=== PATIENT | male | born 1945 | race Caucasian/White ===

== ENCOUNTER → 2023-09-04 10:18 | Outpatient (REF) | payer MEDICARE, SELFPAY ==
[2023-09-04 11:17] LABS: % Basophils 0.3 % (0-2); % Immature Granulocytes 0.3 % (0-0.5); % Lymphocytes 15.1 % (20.5-51.1); % Monocytes 9.8 % (1.7-9.3); % Neutrophils 73.5 % (42.2-75.2); Absolute Eosinophils 0.1 10^3/uL (0-0.7); Absolute Monocytes 0.7 10^3/uL (0.1-0.6); Hematocrit 37.2 % (39.0-52.0); Hemoglobin 12.8 g/dL (13.0-18.0); Mean Corp Hgb Conc. 34.4 g/dL (33.0-37.0); Mean Corpuscular Hgb 37.6 pg (27.0-31.0); Mean Corpuscular Volume 109.4 fL (80.0-94.0); Mean Platelet Volume 10.9 fL (7.4-10.4); Nucleated Red Blood Cells % 0 % (-); Platelet Count 134 10^3/uL (130-400); Red Cell Dist. Width 15.7 % (11.5-14.5); White Blood Cell Count 6.8 10^3/uL (4.8-10.8)
[2023-09-04 11:39] LABS: Blood Urea Nitrogen 30 mg/dl (9-20); Calcium 8.7 mg/dl (8.4-10.2); Carbon Dioxide 24 mmol/L (22-30); Chloride 103 mmol/L (98-107); Glucose 109 mg/dl (70-99); Potassium 3.9 mmol/L (3.5-5.1); Sodium 141 mmol/L (135-145); eGFR 47.65
== END ==
LOC: RAD 10:18
PROVIDERS: ATTENDING PHYSICIAN Internal Medicine
DX: R11.2 Nausea with vomiting, unspecified (principal); Z87.19 Personal history of other diseases of the digestive system
CPT/HCPCS: 36415; 74022; 80048; 85025

== ENCOUNTER 2023-09-05 22:09 | Inpatient (IN) | payer MEDICARE, SELFPAY ==
[2023-09-05] VITALS (9 sets, daily range): BP systolic 102–144; BP diastolic 56–93; BMI 27.6; BMI 26.5
--- NOTE | 2023-09-05 19:52 | ED.GENMED ---
History of Present Illness
General
Chief Complaint: Abdominal Pain
Source: patient and spouse
Exam Limitations: none
Time Seen by Provider: 09/05/23 18:01
Nursing documentation reviewed up to this point in time: agreed with
Travel History
Have you had any contact with someone who has COVID-19?: No
Do you have any symptoms of coronavirus? Fever > 100 degrees, chills, cough, shortness of breath, sore throat, loss of taste or smell, muscle aches, or headache?: No
History of Present Illness
History of Present Illness:
78-year-old male with past medical history of A-fib, CAD, hyperlipidemia, solitary kidney after previous removal, Parkinson's presenting to the emergency department after being found to have worsening diverticulitis with outpatient CT scan. Had
outpatient labs without acute abnormalities. Primary care doctor recommended to go to the emergency department to get IV antibiotics and be admitted. He claims he had some vague abdominal pain but no focal pain. Has had some vague generalized
symptoms. Was previously on antibiotics 2 weeks ago which include ciprofloxacin and metronidazole.
Past History
Past History
ED Past Medical History: Arrthythmia, CAD, Cancer, GERD, HTN, Hypercholesterolemia, AR and Other
ED Past Surgical History: Cardiac, Urological and Other
Social History
Tobacco: Former smoker
Alcohol: Occasional
Drug: None
Personal:
Living: with family
Employment: Retired
Family History
Family History: CAD
Review of Systems
Review of Systems
Allergies reviewed?: Yes
All Other Systems: ROS reviewed and negative except as documented in HPI and ROS
Phy Exam
Physical Exam
Physical Exam:
GENERAL: Alert , in no apparent distress
EYE: pupils equal and reactive
NECK: Supple, no significant adenopathy.
ENT: o/p clr, mmm.
CARDIAC: Regular rate and rhythm .
LUNGS: Clear breath sounds bilaterally, no acute respiratory distress, no wheezes/rales/rhonchi
ABDOMEN: Soft, without focal tenderness, no r/g, no cvat
NEUROLOGICAL: Alert and oriented, no focal neuro deficits
SKIN: Warm and dry, skin intact.
MUSCULOSKELETAL: No edema, well perfused.
PSYCH: Normal and appropriate interaction.
Course
Orders/Labs/Results
Orders:
Orders
09/05/23 20:17
0.9% Sodium Chloride 1000 ml [Nss] 1,000 ml IV BOLUS
Piperacillin/Tazo 3.375 Gram [Zosyn] 3.375 gram in 50 ml IV NOW
09/05/23 21:00
Apixaban [Eliquis] 5 mg PO BID
Clopidogrel Bisulfate [Plavix] 75 mg PO QPM
09/05/23 21:07
Admit/Transfer Patient As Directed
Co-Sign Provider:
Level of Care: Inpatient admission
Assign to:: Medical/Surgical
Physician / Group: Kelley Mari
Diagnosis: recurrent acute diverticulitis
Reason for Hospitalization: recurrent diverticulitis; failure to improve outpatient abx
Expected length of stay greater than two midnights?: Yes
ELOS- Estimated Length of Stay in days: 3
I certify the patient meets the requirements for IP care: Yes
09/05/23 21:09
Code Status As Directed
Resuscitation Status: Full Code
Complete Blood Count/With Diff Urgent
Comprehensive Metabolic Panel Urgent
Lactic Acid Urgent
Urinalysis Reflex To Culture Urgent
Date Specimen was Collected: 09/05/23
Time Specimen was Collected: 20:44
09/05/23 22:00
Piperacillin/Tazo 3.375 Gram [Zosyn] 3.375 gram in 50 ml IV Q6H
Piperacillin/Tazo 4.5 Gram [Zosyn] 4.5 gram in 100 ml IV Q6H
midodrine 10 mg PO TID
Abnormal Lab Results
09/05/23
21:09
RBC 3.09 L 10^6/uL
(4.70-6.10)
Hgb 11.5 L g/dL
(13.0-18.0)
Hct 33.5 L %
(39.0-52.0)
MCV 108.4 H fL
(80.0-94.0)
MCH 37.2 H pg
(27.0-31.0)
RDW 15.3 H %
(11.5-14.5)
Plt Count 109 L 10^3/uL
(130-400)
Absolute Lymphs (auto) 0.5 L 10^3/uL
(1.2-3.4)
Immature Gran % 0.6 H %
(0-0.5)
Neutrophils % 83.6 H %
(42.2-75.2)
Lymphocytes % 10.2 L %
(20.5-51.1)
09/05/23 21:09
Vital Signs
Initial and Last Documented VS:
Initial Vital Signs
Temp Pulse Resp BP Pulse Ox
98.4 F 71 17 116/56 98
09/05/23 15:07 09/05/23 15:07 09/05/23 15:07 09/05/23 15:07 09/05/23 15:07
Last Documented Vital Signs
Temp Pulse Resp BP Pulse Ox
98.4 F 55 16 138/58 100
09/05/23 15:07 09/05/23 17:48 09/05/23 17:48 09/05/23 17:48 09/05/23 17:48
MDM/Problems Addressed
MDM/Problems Addressed:
78-year-old male generally well-appearing in no obvious distress on examination normal vital signs presented for worsening diverticulitis. Recently treated with antibiotics 2 weeks ago. Primary care doctor concerned with ongoing diverticulitis.
Recommended IV antibiotics. Case discussed with colorectal surgery the claims that he could potentially follow-up as an outpatient or come in depending on patient's comfort level and symptoms. At this point it was discussed with the patient claims
that first day was having some ongoing symptoms considering this will admit started on IV antibiotics.
*Critical Care Note
Total Time (30-74mins, 75-104mins- exclusive of procedures): Not Applicable
ED Attending Note
-
Portions of this chart may have been created with voice recognition software.� Occasional wrong word or��sound alike� substitutions may have occurred due to the inherent limitations of voice recognition software.
Discharge Plan
Departure
Patient Disposition: Admit
Date of Disposition: 09/05/23
Time of Disposition: 20:28
Admit to: Med/Surg
Admit to doctor: Trung
Presentation/result/management discussed w/ accepting MD/DO: Hospitalist
Patient with high blood pressure during this ER visit?: No
Condition: Good
Covid-19: Not Applicable
Discharge Problem:
Diverticulitis
Prescriptions:
No Action
pantoprazole 40 MG tablet,delayed release (DR/EC)
40 mg PO DAILY Qty: 30 0RF
ascorbic acid (vitamin C) [Vitamin C] 500 MG tablet
500 mg PO DAILY
polyethylene glycol 3350 [Miralax] 17 gram Powder In Packet
17 g PO DAILY PRN (Reason: constipation)
fludrocortisone 0.1 mg Tablet
0.1 mg PO DAILY
zolpidem 10 mg tablet
10 mg PO HS
Patient Comments:
09/05/2023: last filled 06/28/23, 90 tabs for 90 days from [facility]#[id number]
tamsulosin [Flomax] 0.4 mg Capsule
0.4 mg PO HS
sennosides [senna] 8.6 mg Tablet
8.6 mg PO HS PRN (Reason: constipation)
therapeutic multivitamin Tablet
1 tab PO DAILY
acetaminophen [Tylenol Extra Strength] 500 mg Tablet
1,000 mg PO Q6H PRN (Reason: mild pain)
hydrocortisone acetate 25 mg Suppository
25 mg IA DAILY PRN (Reason: rectal pain)
magnesium hydroxide [Milk of Magnesia] 400 mg/5 mL Suspension
30 ml PO HS PRN (Reason: Constipation)
Eliquis 5 mg Tablet
5 mg PO BID
baclofen 5 mg Tablet
5 mg PO HS
clopidogrel 75 MG tablet
75 mg PO QPM
midodrine 10 mg tablet
10 mg PO TID Qty: 30 0RF
acetaminophen-codeine 300-30 mg tablet
1 tab PO BID PRN (Reason: back pain)
Patient Comments:
09/05/2023: last filled 06/27/23, 46 tabs [address] [facility]#[id number]
Referrals:
Chito Sotelo MD [Family Provider] -
Interventions
Interventions:
*Risk Screen - Suicide Last Done: 09/05/23 20:42
*General Assessment Last Done: 09/05/23 15:07
*Neglect/Abuse Screening Last Done: 09/05/23 20:42
ED- Fall Risk Assessment Last Done: 09/05/23 20:42
*ED COVID-19 Vaccine History Last Done: 09/05/23 15:07
CP-Anfoiz-Ewtgoouybq Assessment Last Done: 09/05/23 19:48
--- NOTE | 2023-09-05 20:37 | HPS.HSE ---
Addendum entered and electronically signed by Kelley Mari MD 09/05/23 22:04:
labs returned WBC 5.3; Hg 11.5, PLT 109. Na 138, K+ 3.9. Cr 1.4 (was 1.5 yesterday, baseline ~ 1-1.3). T. Bili 1.7, AST 144, ALT 67, Alk Phos 141.
CT with no focal intrinsic abnormality of liver; will obtain US given GI sx and elevated liver enzymes. Patient without RUQ pain. He states he takes 2 pills tylenol/day, no more.
Original Note:
Family Physician
-
Family Physician: Clif Sotelo
Chief Complaint
-
abdominal pain
History of Present Illness
Mr. 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
Patient states that this is his fourth episode of diverticulitis since January. He was treated with Augmentin then. He then had recurrence in the fall and earlier this year. Patient's symptoms associated with these episodes is nausea and vomiting.
He denies abdominal pain. On Sunday he had multiple episodes of vomiting. Since then he has felt weak and has been eating less. His PCP told him to come to the ER today. No fevers/chills. His last colonoscopy was 7 years ago.
Patient denies chest pain. No shortness of breath. No rash. + constipation. No LE swelling.
Medical History
Past Medical History
Past Medical History: Reports Arrhythmia, CAD, Cancer, Hypercholesterolemia and Other
Additional Past Medical History:
Parkinsonism, bladder cancer
Past Surgical History: Reports Cardiac (CABG, cardiac cath)
Social History
Tobacco: Former Smoker
Alcohol: Occasional
Drug: None
Personal:
Living: With Family
Employment: Retired
Family History
Family History: CAD
Allergies / Home Medications
Allergies reflects when Allergies were last updated in [employer].
Home Medications with original date entered in [employer]
Allergy/Medication List:
Allergies
Allergy/AdvReac Type Severity Reaction Status Date / Time
atorvastatin calcium Allergy INTOLERANCE-muscle Verified 09/05/23 15:06
[From Lipitor] ache
colesevelam HCl Allergy INTOLERANCE,muscle Verified 09/05/23 15:06
[From WelChol] ache
ezetimibe [From Zetia] Allergy INTOLERANCE,muscle Verified 09/05/23 15:06
ache
fenofibrate,micronized Allergy muscle ache Verified 09/05/23 15:06
[From Tricor]
niacin Allergy muscle Verified 09/05/23 15:06
[From Niaspan
Extended-Release]
rosuvastatin calcium Allergy muscle ache Verified 09/05/23 15:06
[From Crestor]
simvastatin [Simvastatin] Allergy LEG PAIN Verified 09/05/23 15:06
Home Medications
pantoprazole 40 mg tablet,delayed release 40 mg PO DAILY #30 tabs 08/15/13
ascorbic acid (vitamin C) 500 mg tablet (Vitamin C) 500 mg PO DAILY Supplement 12/17/18
acetaminophen 500 mg tablet (Tylenol Extra Strength) 1,000 mg PO Q6H PRN mild pain 05/28/23
apixaban 5 mg tablet (Eliquis) 5 mg PO BID - CAD status post CABG/stent 05/28/23
baclofen 5 mg tablet 5 mg PO HS Pain 05/28/23
clopidogrel 75 mg tablet 75 mg PO QPM - CAD status post CABG/stent 05/28/23
hydrocortisone acetate 25 mg rectal suppository 25 mg NV DAILY PRN rectal pain 05/28/23
magnesium hydroxide 400 mg/5 mL oral suspension (Milk of Magnesia) 30 ml PO HS PRN Constipation 05/28/23
sennosides 8.6 mg tablet (senna) 8.6 mg PO HS PRN constipation 05/28/23
therapeutic multivitamin 1 tab PO DAILY Supplement 05/28/23
midodrine 10 mg tablet 10 mg PO TID #30 tabs 06/01/23
fludrocortisone 0.1 mg tablet 0.1 mg PO DAILY Adrenal insufficiency 06/15/23
polyethylene glycol 3350 17 gram oral powder packet (Miralax) 17 g PO DAILY PRN constipation 06/15/23
zolpidem 10 mg tablet 10 mg PO HS Sleep 06/15/23
tamsulosin 0.4 mg capsule (Flomax) 0.4 mg PO HS Urinary Issue 07/10/23
acetaminophen 300 mg-codeine 30 mg tablet 1 tab PO BID PRN back pain 09/05/23
Review of Systems
-
History Source: Patient
A 12 point ROS was completed and negative except as noted: Yes
Physical Exam
Vital Signs
Vital Signs
Temp Pulse Resp BP Pulse Ox
98.4 F 55 16 138/58 100
09/05/23 15:07 09/05/23 17:48 09/05/23 17:48 09/05/23 17:48 09/05/23 17:48
Physical Exam
General: No Apparent Distress
HEENT: PERRLA
Respiratory: Clear; No Wheezes
Cardiac: S1/S2 and Regular Rhythm
GI: Soft and Non Tender
Musculoskeletal: No Edema
Skin: Warm and Dry; No Rash
Neuro: AO x 3
Psych: Calm
Data Reviewed
-
Diagnostic Radiology: Report Reviewed by me
Lab Data: Labs Reviewed by me
Impression/Plan
-
Mr. 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
Triage VS: T 98.4, P 71, RR 17, BP 116/56, SpO2 98%
LABS:
CT A/P
IMPRESSION:
Although LIMITED WITHOUT ORAL CONTRAST OPACIFICATION of sigmoid colon, distal descending and sigmoid diverticulosis is noted with perhaps minimally increased stranding about the proximal sigmoid colon in comparison to recent prior CT suggesting
minimal progression of uncomplicated diverticulitis.
Prior right nephrectomy again noted.
Post endovascular repair of right common iliac artery and abdominal aortic aneurysm with patent stents again noted, likely stable, better appreciated on recent CTA study August 08, 2023.
Recurrent Acute Diverticulitis
-patient has not had a colonoscopy in 7 years
-admit to med/surg
-clear liquid diet
-CRS consult
-IV Zosyn
-IV Zofran PRN
-will likely need colonoscopy post treatment acute infection (keeping blood thinners on for now)
Orthostatic hypotension
-MANAGER CONCRETE midodrine
-MANAGER CONCRETE fludrocortisone
Parkinson's disease
-patient states no longer on Sinemet given hx orthostatic hypotesnion
Atrial fibrillation paroxysmal.� Continue Eliquis.
Hx right common iliac artery aneurysm with stent 07/21
CAD/CABG
-MANAGER CONCRETE Plavix
Hyperlipidemia
History of bladder cancer/BPH
-MANAGER CONCRETE Flomax
Full code
DVT PPx Eliquis
[2023-09-05 21:15] LABS: % Basophils 0.2 % (0-2); % Eosinophils 1.3 % (0-6); % Immature Granulocytes 0.6 % (0-0.5); % Lymphocytes 10.2 % (20.5-51.1); % Monocytes 4.1 % (1.7-9.3); % Neutrophils 83.6 % (42.2-75.2); Absolute Eosinophils 0.1 10^3/uL (0-0.7); Absolute Lymphocytes 0.5 10^3/uL (1.2-3.4); Absolute Monocytes 0.2 10^3/uL (0.1-0.6); Absolute Neutrophils 4.5 10^3/uL (1.4-6.5); Hematocrit 33.5 % (39.0-52.0); Hemoglobin 11.5 g/dL (13.0-18.0); Mean Corp Hgb Conc. 34.3 g/dL (33.0-37.0); Mean Corpuscular Hgb 37.2 pg (27.0-31.0); Mean Corpuscular Volume 108.4 fL (80.0-94.0); Mean Platelet Volume 9.9 fL (7.4-10.4); Nucleated Red Blood Cells % 0 % (-); Platelet Count 109 10^3/uL (130-400); Red Blood Cell Count 3.09 10^6/uL (4.70-6.10); Red Cell Dist. Width 15.3 % (11.5-14.5); Urine Albumin Trace (Neg - Trace); Urine Bilirubin Negative (Negative); Urine Character Clear (Clear); Urine Color Yellow; Urine Glucose Negative (Negative); Urine Ketone Negative (Negative); Urine Leukocyte Negative (Negative); Urine Nitrite Negative (Negative); Urine Occult Blood Negative (Negative); Urine Urobilinogen 1+ (Neg - 1+); White Blood Cell Count 5.3 10^3/uL (4.8-10.8)
[2023-09-05] MEDS: NSS 1000 IV ×2 (21:15→23:23)
[2023-09-05] MEDS: PLAVIX 75 MG PO (21:16)
[2023-09-05] MEDS: ELIQUIS 5 MG PO (21:16)
[2023-09-05 21:27] LABS: Lactic Acid 1.4 mmol/L (0.7-2.0)
[2023-09-05 21:44] LABS: ALT (SGPT) 67 U/L (0-50); AST (SGOT) 144 U/L (17-59); Albumin 3.7 g/dl (3.5-5.0); Alkaline Phosphatase 141 U/L (38-126); Blood Urea Nitrogen 18 mg/dl (9-20); Calcium 8.9 mg/dl (8.4-10.2); Carbon Dioxide 29 mmol/L (22-30); Chloride 100 mmol/L (98-107); Glucose 122 mg/dl (70-99); Potassium 3.9 mmol/L (3.5-5.1); Sodium 138 mmol/L (135-145); Total Bilirubin 1.7 mg/dl (0.2-1.3); Total Protein 6.4 g/dl (6.3-8.2); eGFR 51.77
--- NOTE | 2023-09-05 22:35 | PTCARENOTE ---
Patient received in bed from ED @ 2235. Patient oriented to room and call gregorio.
[2023-09-05] MEDS: FLOMAX 0.400000000000000022 MG PO (23:13)
[2023-09-05] MEDS: ZOSYN 50 IV (23:13)
[2023-09-06] MEDS: LIORESAL 5 MG PO ×2 (00:01→21:19)
[2023-09-06] MEDS: AMBIEN 5 MG PO ×2 (00:01→21:19)
[2023-09-06] MEDS: ZOSYN 50 IV ×4 (03:21→21:19)
[2023-09-06 07:15] LABS: % Basophils 0.2 % (0-2); % Eosinophils 1.9 % (0-6); % Immature Granulocytes 0.7 % (0-0.5); % Lymphocytes 17.1 % (20.5-51.1); % Monocytes 9.1 % (1.7-9.3); Absolute Eosinophils 0.1 10^3/uL (0-0.7); Absolute Lymphocytes 0.7 10^3/uL (1.2-3.4); Absolute Monocytes 0.4 10^3/uL (0.1-0.6); Hematocrit 31.2 % (39.0-52.0); Hemoglobin 10.9 g/dL (13.0-18.0); Mean Corp Hgb Conc. 34.9 g/dL (33.0-37.0); Mean Corpuscular Hgb 38.1 pg (27.0-31.0); Mean Corpuscular Volume 109.1 fL (80.0-94.0); Mean Platelet Volume 11.1 fL (7.4-10.4); Nucleated Red Blood Cells % 0 % (-); Platelet Count 108 10^3/uL (130-400); Red Blood Cell Count 2.86 10^6/uL (4.70-6.10); Red Cell Dist. Width 14.9 % (11.5-14.5); White Blood Cell Count 4.2 10^3/uL (4.8-10.8)
[2023-09-06 07:45] LABS: ALT (SGPT) 135 U/L (0-50); AST (SGOT) 157 U/L (17-59); Alkaline Phosphatase 174 U/L (38-126); Blood Urea Nitrogen 16 mg/dl (9-20); Calcium 8.4 mg/dl (8.4-10.2); Carbon Dioxide 28 mmol/L (22-30); Chloride 105 mmol/L (98-107); Estimated Creatinine Clearance 55 ml/min; Glucose 104 mg/dl (70-99); Magnesium 2.2 mg/dl (1.6-2.3); Potassium 3.7 mmol/L (3.5-5.1); Sodium 140 mmol/L (135-145); Total Bilirubin 2.1 mg/dl (0.2-1.3); Total Protein 5.5 g/dl (6.3-8.2); eGFR 56.58
[2023-09-06 08:02] VITALS: BP 141/65
[2023-09-06] MEDS: PROTONIX 40 MG PO ×2 (10:28→10:31)
[2023-09-06] MEDS: NSS 1000 IV ×2 (10:28→21:24)
[2023-09-06] MEDS: THERAGRAN 1 TABLET PO (10:29)
[2023-09-06] MEDS: FLORINEF 0.100000000000000006 MG PO (10:32)
[2023-09-06] MEDS: ELIQUIS 5 MG PO ×2 (10:32→21:19)
[2023-09-06] MEDS: ProAmatine 10 MG PO ×3 (10:44→18:05)
--- NOTE | 2023-09-06 11:05 | CON.CRS ---
Consultation
-
Date/Time Consultation Requested: 09/05/2023, 2228
Date/Time Consultation Performed: 09/05/2023, 815
Requesting Provider: Kelley Mari MD
Performing Provider: Aamir Sheffield MD
Reason for Consultation: Diverticulitis
Medical History
-
Chief Complaint: Vomiting
History of Present Illness:
78-year-old male with a past medical history of bladder cancer, right nephrectomy, iliac aneurysm status postrepair, CABG x 1, and 7 cardiac stents presents to the ER yesterday per his primary care physician. The patient has had multiple attacks of
diverticulitis since January 2023, this being his fourth attack. His main symptom of diverticulitis is vomiting, weakness, and lack of appetite. The patient states he has never had abdominal pain fevers or chills. He has had a few CAT scans which
showed diverticulitis since January and has been on antibiotics several times. He usually is on Augmentin. The patient states that 4 days ago he started vomiting again. He had no abdominal pain or diarrhea at that time. Typically he is on the
constipated side due to his Parkinson's disease and requires 2 different laxatives to have bowel movements regularly. CT of the abdomen and pelvis shows distal descending and sigmoid diverticulosis with perhaps minimally increased stranding about
the proximal sigmoid colon comparison to the most recent CT on 08/08/2023 which suggest minimal progression of uncomplicated diverticulitis. On admission the patient's white count is 5.3. His vital signs are normal. He remains afebrile. Given his
multiple attacks of diverticulitis, we have been consulted for further surgical opinion.
Past Medical History
Past Medical History: CAD, Cancer (Bladder), Hypercholesterolemia and Other (Parkinson's disease)
Past Surgical History: Cardiac (CABG x 1, 7 cardiac stents in total), Tonsilectomy and Other (Right nephrectomy in 2020, iliac aneurysm repair in July 2023)
Social History
Tobacco: Former Smoker
Alcohol: Occasional
Drug: None
Personal:
Family History
Family History: Reviewed & Not Pertinent
Allergies / Home Medications
Allergy/AdvReac Type Severity Reaction Status Date / Time
atorvastatin calcium Allergy INTOLERANCE-muscle Verified 09/05/23 15:06
[From Lipitor] ache
colesevelam HCl Allergy INTOLERANCE,muscle Verified 09/05/23 15:06
[From WelChol] ache
ezetimibe [From Zetia] Allergy INTOLERANCE,muscle Verified 09/05/23 15:06
ache
fenofibrate,micronized Allergy muscle ache Verified 09/05/23 15:06
[From Tricor]
niacin Allergy muscle Verified 09/05/23 15:06
[From Niaspan
Extended-Release]
rosuvastatin calcium Allergy muscle ache Verified 09/05/23 15:06
[From Crestor]
simvastatin [Simvastatin] Allergy LEG PAIN Verified 09/05/23 15:06
Medication Instructions Recorded Confirmed Type
pantoprazole 40 mg tablet,delayed 40 mg PO DAILY #30 tabs 08/15/13 09/05/23 Rx
release
ascorbic acid (vitamin C) 500 mg 500 mg PO DAILY Supplement 12/17/18 09/05/23 History
tablet (Vitamin C)
acetaminophen 500 mg tablet 1,000 mg PO Q6H PRN mild pain 05/28/23 09/05/23 History
(Tylenol Extra Strength)
apixaban 5 mg tablet (Eliquis) 5 mg PO BID - CAD status post 05/28/23 09/05/23 History
CABG/stent
baclofen 5 mg tablet 5 mg PO HS Pain 05/28/23 09/05/23 History
clopidogrel 75 mg tablet 75 mg PO QPM - CAD status post 05/28/23 09/05/23 History
CABG/stent
hydrocortisone acetate 25 mg 25 mg ME DAILY PRN rectal pain 05/28/23 09/05/23 History
rectal suppository
magnesium hydroxide 400 mg/5 mL 30 ml PO HS PRN Constipation 05/28/23 09/05/23 History
oral suspension (Milk of Magnesia)
sennosides 8.6 mg tablet (senna) 8.6 mg PO HS PRN constipation 05/28/23 09/05/23 History
therapeutic multivitamin 1 tab PO DAILY Supplement 05/28/23 09/05/23 History
midodrine 10 mg tablet 10 mg PO TID #30 tabs 06/01/23 09/05/23 Rx
fludrocortisone 0.1 mg tablet 0.1 mg PO DAILY Adrenal 06/15/23 09/05/23 History
insufficiency
polyethylene glycol 3350 17 gram 17 g PO DAILY PRN constipation 06/15/23 09/05/23 History
oral powder packet (Miralax)
zolpidem 10 mg tablet 10 mg PO HS Sleep 06/15/23 09/05/23 History
tamsulosin 0.4 mg capsule (Flomax) 0.4 mg PO HS Urinary Issue 07/10/23 09/05/23 History
acetaminophen 300 mg-codeine 30 mg 1 tab PO BID PRN back pain 09/05/23 09/05/23 History
tablet
Review of Systems
-
History Source: Patient
All other systems: Negative unless noted
Constitutional: Other (Weakness)
Abdomen/GI: Vomiting and Anorexia
A 10 point review of systems was completed, and was negative except as per HPI.
Physical Exam
Vital Signs
Temp 97.9 F 09/06/23 08:02
Pulse 61 09/06/23 08:02
Resp Rate 18 09/06/23 08:02
Blood pressure 141/65 09/06/23 08:02
SaO2 97 09/06/23 08:02
09/05/23 09/06/23 09/07/23
06:59 06:59 06:59
Actual Weight 93.485 kg
Body Mass Index (BMI) 26.5
Lab Results / Allergies
09/06/23 06:07
09/06/23 06:07
WBC 4.2 10^3/uL (4.8-10.8) L 09/06/23 06:07
Hgb 10.9 g/dL (13.0-18.0) L 09/06/23 06:07
Hct 31.2 % (39.0-52.0) L 09/06/23 06:07
Plt Count 108 10^3/uL (130-400) L 09/06/23 06:07
Abs Immat Gran (auto) 0.0 10^3/uL (0-0.05) 09/06/23 06:07
Neutrophils % 71.0 % (42.2-75.2) 09/06/23 06:07
Allergy/AdvReac Type Severity Reaction Status Date / Time
atorvastatin calcium Allergy INTOLERANCE-muscle Verified 09/05/23 15:06
[From Lipitor] ache
colesevelam HCl Allergy INTOLERANCE,muscle Verified 09/05/23 15:06
[From WelChol] ache
ezetimibe [From Zetia] Allergy INTOLERANCE,muscle Verified 09/05/23 15:06
ache
fenofibrate,micronized Allergy muscle ache Verified 09/05/23 15:06
[From Tricor]
niacin Allergy muscle Verified 09/05/23 15:06
[From Niaspan
Extended-Release]
rosuvastatin calcium Allergy muscle ache Verified 09/05/23 15:06
[From Crestor]
simvastatin [Simvastatin] Allergy LEG PAIN Verified 09/05/23 15:06
Physical Exam
General: Well Developed, Well Nourished and No Apparent Distress
GI: Soft and Tender (Mild left lower quadrant/suprapubic)
Skin: Warm and Dry
Neuro: AO x 3
Data Reviewed
-
CT Scan: Image Personally Visualized and interpreted, Report Reviewed by me and Discussed with Patient
Labs: Labs Reviewed by me, Discussed with Physician and Discussed with Patient
Old Records: Reviewed
Assessment / Plan
-
Assessment: 78-year-old male with a significant past medical history of CABG, right nephrectomy, and recent iliac aneurysm repair and multiple attacks of diverticulitis since January, now with sigmoid diverticulitis.
Plan:
There is no indication for urgent surgery at this time. Can advance diet to a full liquid diet. Continue IV antibiotics. Anticipate getting through his hospital stay without surgery and performing a colonoscopy in 4 to 6 weeks. Will likely need
eventual elective robotic surgery. Discussed plan with patient at bedside.
--- NOTE | 2023-09-06 14:24 | W.PN.HOSP.TC ---
Today's Communication/Plan
-
cw current diet
Consult GI
Follow LFTs
Assessment / Plan
Assessment / Plan
Mr. 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
CT A/P
IMPRESSION:
Although LIMITED WITHOUT ORAL CONTRAST OPACIFICATION of sigmoid colon, distal descending and sigmoid diverticulosis is noted with perhaps minimally increased stranding about the proximal sigmoid colon in comparison to recent prior CT suggesting
minimal progression of uncomplicated diverticulitis.
Prior right nephrectomy again noted.
Post endovascular repair of right common iliac artery and abdominal aortic aneurysm with patent stents again noted, likely stable, better appreciated on recent CTA study August 08, 2023.
Acute nausea vomiting which was episodic and subsided now. He is without any abdominal pain. CT of the abdomen but done without any oral contrast raises suspicion for uncomplicated sigmoid diverticulitis. He just finished course of antibiotics
for presumed diverticulitis as an outpatient. He is nontender in the sigmoid area to me today. He has no leukocytosis. Unclear if it is diverticulitis or bowel wall thickening without acute inflammation. Would benefit of oral contrast study to
delineate further. CRS following.
Other thing to keep in mind is his abnormal LFTs and preceeding antibiotic use.
Abnormal LFTs with abdo pain. CT with IV contrast -There is no focal intrinsic abnormality of the gallbladder, liver, spleen, pancreas, adrenal glands or left kidney except for a small simple parapelvic left renal cyst.�US shows GB sludge with
cholelithiasis but no US signs to suggest cholecystitis. No biliary ductal dilatation. No abdominal pain or tenderness currently. Unclear etiology. Patient was exposed to antibiotics preceding this. Consult GI.
Orthostatic hypotension
-NURSE OBGYN midodrine
-NURSE OBGYN fludrocortisone
Parkinson's disease
-patient states no longer on Sinemet given hx orthostatic hypotesnion
Atrial fibrillation paroxysmal.� Continue Eliquis.
Hx right common iliac artery aneurysm with stent 07/21
CAD/CABG
-NURSE OBGYN Plavix
Hyperlipidemia
History of bladder cancer/BPH
-NURSE OBGYN Flomax
Full code
DVT PPx Eliquis
Anticipated Discharge: > 48 hours
Subjective/Interval History
-
Date of Service: September 06, 2023
No abdominal pain. He never had abdominal pain with his diverticulitis in the past as well.
He had bouts of nausea and vomiting on Sunday and ever since no nausea vomiting. Depressed appetite. No nausea vomiting currently. Currently on full liquid diet which she seems to tolerate.
He was on empirical antibiotics Augmentin plus another antibiotics which he cannot recollect the name for diverticulitis and finished on Sunday last week. He started to have nausea and vomiting on Sunday. No diarrhea. Normally constipated
because of his Parkinson's disease.
No prior history of gallbladder disease.
Objective Data
-
Labs:
Laboratory Results
09/06/23
06:07
WBC 4.2 L
Hgb 10.9 L
Hct 31.2 L
Plt Count 108 L
Sodium 140
Potassium 3.7
Chloride 105
Carbon Dioxide 28
BUN 16
Creatinine 1.3
Glucose 104 H
Calcium 8.4
Total Bilirubin 2.1 H
AST 157 H
ALT 135 H
Alkaline Phosphatase 174 H
Vital Signs:
Vital Signs
Temp Pulse Resp BP Pulse Ox
97.9 F 61 18 141/65 97
09/06/23 08:02 09/06/23 08:02 09/06/23 08:02 09/06/23 08:02 09/06/23 08:02
I&O
09/05/23 09/06/23 09/07/23
06:59 06:59 06:59
Intake Total 340 / 340
Output Total 1150 / 1150
Balance -810 / -810
Review of Systems
-
Constitutional: Denies Fever or Chills
EENT: Denies Sore Throat
Respiratory: Denies Trouble Breathing
Cardiac: Denies Chest Pain
Neuro: Denies Dizzy
Physical Exam
-
General: No Apparent Distress
HEENT: Moist Mucous Membranes
Respiratory: Clear to Auscultation
Cardiac: Regular Rhythm and S1/S2
GI: Soft, Nontender, Nondistended and Normal Bowel Sounds
Neuro: AO x 3
Psych: Calm
Data Reviewed
-
Ultrasound: Report Reviewed by me (Ultrasound abdomen)
Labs: Labs Reviewed by me
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
[2023-09-06 15:21] VITALS: BP 142/64
[2023-09-06 15:48] LABS: Iron 56 ug/dl (49-181)
[2023-09-06 15:58] LABS: Percent Saturation 27 % (20-50); Total Iron Binding Capacity 206 ug/dl (261-462)
--- NOTE | 2023-09-06 16:17 | CM ---
manager agricultural reviewed patient's chart and met with patient and patient lives with her spouse in 2 story home, patient is independent with adl's and has a cane and walker for ambulation. Patient has a prescription plan and patient uses [facility] pharmacy,
PCP: Dr. Sotelo
Plan; Home when stable, no needs.
[2023-09-06 17:03] VITALS: BMI 26.5
[2023-09-06 17:06] LABS: Folate > 20.0 ng/ml (2.76-20); Vitamin B12 881 pg/ml (239-931)
[2023-09-06] MEDS: PLAVIX 75 MG PO (18:05)
[2023-09-06] MEDS: FLOMAX 0.400000000000000022 MG PO (21:19)
[2023-09-06 23:35] VITALS: BP 162/74
[2023-09-07] MEDS: ZOSYN 50 IV ×4 (04:10→21:05)
[2023-09-07] MEDS: NSS IV (08:01)
[2023-09-07 08:12] VITALS: BP 167/81
[2023-09-07 09:12] LABS: Hematocrit 33.4 % (39.0-52.0); Hemoglobin 11.6 g/dL (13.0-18.0); Mean Corp Hgb Conc. 34.7 g/dL (33.0-37.0); Mean Corpuscular Hgb 37.2 pg (27.0-31.0); Mean Corpuscular Volume 107.1 fL (80.0-94.0); Mean Platelet Volume 11.1 fL (7.4-10.4); Platelet Count 117 10^3/uL (130-400); Red Blood Cell Count 3.12 10^6/uL (4.70-6.10); Red Cell Dist. Width 14.9 % (11.5-14.5); White Blood Cell Count 5.4 10^3/uL (4.8-10.8)
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
[2023-09-07 09:34] LABS: ALT (SGPT) 147 U/L (0-50); AST (SGOT) 97 U/L (17-59); Albumin 3.2 g/dl (3.5-5.0); Alkaline Phosphatase 194 U/L (38-126); Blood Urea Nitrogen 12 mg/dl (9-20); Calcium 8.6 mg/dl (8.4-10.2); Carbon Dioxide 26 mmol/L (22-30); Chloride 106 mmol/L (98-107); Estimated Creatinine Clearance 55 ml/min; Glucose 102 mg/dl (70-99); Potassium 3.8 mmol/L (3.5-5.1); Sodium 142 mmol/L (135-145); Total Bilirubin 1.3 mg/dl (0.2-1.3); Total Protein 5.8 g/dl (6.3-8.2); eGFR 56.58
--- NOTE | 2023-09-07 10:12 | CM ---
Chart reviewed, GI consulted, home with spouse when stable.
Plan; Home when stable.
[2023-09-07] MEDS: THERAGRAN 1 TABLET PO (11:12)
[2023-09-07] MEDS: ProAmatine 10 MG PO ×2 (11:12→17:09)
[2023-09-07] MEDS: PROTONIX 40 MG PO (11:12)
[2023-09-07] MEDS: FLORINEF 0.100000000000000006 MG PO (11:12)
[2023-09-07] MEDS: ELIQUIS 5 MG PO ×2 (11:13→21:04)
[2023-09-07] MEDS: ProAmatine PO (11:30)
--- NOTE | 2023-09-07 11:32 | W.PN.HOSP.TC ---
Today's Communication/Plan
-
Follow MRI of abdomen/MRCP
Assessment / Plan
Assessment / Plan
Mr. 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
CT A/P
IMPRESSION:
Although LIMITED WITHOUT ORAL CONTRAST OPACIFICATION of sigmoid colon, distal descending and sigmoid diverticulosis is noted with perhaps minimally increased stranding about the proximal sigmoid colon in comparison to recent prior CT suggesting
minimal progression of uncomplicated diverticulitis.
Prior right nephrectomy again noted.
Post endovascular repair of right common iliac artery and abdominal aortic aneurysm with patent stents again noted, likely stable, better appreciated on recent CTA study August 08, 2023.
Acute nausea vomiting which was episodic and subsided now. He is without any abdominal pain. CT of the abdomen but done without any oral contrast raises suspicion for uncomplicated sigmoid diverticulitis. He just finished course of antibiotics
for presumed diverticulitis as an outpatient. He is nontender in the sigmoid area to me again today. He has no leukocytosis. Unclear if it is diverticulitis or bowel wall thickening without acute inflammation. Would benefit of oral contrast study
to delineate further. CRS following.
Other thing to keep in mind is his abnormal LFTs and preceeding antibiotic use.
Abnormal LFTs with abdo pain. CT with IV contrast -There is no focal intrinsic abnormality of the gallbladder, liver, spleen, pancreas, adrenal glands or left kidney except for a small simple parapelvic left renal cyst.�US shows GB sludge with
cholelithiasis but no US signs to suggest cholecystitis. No biliary ductal dilatation. No abdominal pain or tenderness currently. Unclear etiology. Patient was exposed to antibiotics preceding this. Appt GI input - await MRI/MRCP. Improving LFTs
start on LR diet
Orthostatic hypotension
-ATMOSPHERIC TECHNICIAN midodrine
-ATMOSPHERIC TECHNICIAN fludrocortisone
Parkinson's disease
-patient states no longer on Sinemet given hx orthostatic hypotesnion
Atrial fibrillation paroxysmal.� Continue Eliquis.
Hx right common iliac artery aneurysm with stent 07/21
CAD/CABG
-ATMOSPHERIC TECHNICIAN Plavix
Hyperlipidemia
History of bladder cancer/BPH
-ATMOSPHERIC TECHNICIAN Flomax
Full code
DVT PPx Eliquis
Anticipated Discharge: 24 - 48 hours
Subjective/Interval History
-
Date of Service: September 07, 2023
No further nausea vomiting. No abdominal pain.
Objective Data
-
Labs:
Laboratory Results
09/07/23
08:40
WBC 5.4
Hgb 11.6 L
Hct 33.4 L
Plt Count 117 L
Sodium 142
Potassium 3.8
Chloride 106
Carbon Dioxide 26
BUN 12
Creatinine 1.3
Glucose 102 H
Calcium 8.6
Total Bilirubin 1.3
AST 97 H
ALT 147 H
Alkaline Phosphatase 194 H
Vital Signs:
Vital Signs
Temp Pulse Resp BP Pulse Ox
98.2 F 60 18 167/81 97
09/07/23 08:12 09/07/23 08:12 09/07/23 08:12 09/07/23 08:12 09/07/23 08:12
I&O
09/06/23 09/07/23 09/08/23
06:59 06:59 06:59
Intake Total 340 / 340 4160 / 4160
Output Total 1150 / 1150 1375 / 1375
Balance -810 / -810 2785 / 2785
Review of Systems
-
Constitutional: Denies Fever or Chills
EENT: Denies Sore Throat
Respiratory: Denies Cough or Trouble Breathing
Cardiac: Denies Chest Pain or Palpitations
Neuro: Denies Dizzy
Physical Exam
-
General: No Apparent Distress
HEENT: Moist Mucous Membranes
Respiratory: Clear to Auscultation
Cardiac: Regular Rhythm and S1/S2
GI: Soft, Nontender, Nondistended and Normal Bowel Sounds
Neuro: AO x 3
Data Reviewed
-
Labs: Labs Reviewed by me
--- NOTE | 2023-09-07 12:34 | W.PN.CRS1 ---
Addendum entered and electronically signed by Bradley Keen MD 09/07/23 14:02:
I saw and examined the patient.
The PA's note was reviewed and I agree with the note.
Comment:
Seen in a.m. with PA.
Still with minimal if any pain. Tolerated fulls.
Vitals and blood work unremarkable.
Abdomen soft with minimal suprapubic tenderness to deep palpation.
Diet advanced.
Continue antibiotics. Will follow along.
Original Note:
Today's Communication / Plan
-
low residue
continue abx
no indication for surgery at this time
Assessment/Plan
-
Assessment: 78-year-old male with a significant past medical history of CABG, right nephrectomy, and recent iliac aneurysm repair and multiple attacks of diverticulitis since January, now with sigmoid diverticulitis.
Plan:
1. There is no indication for urgent surgery at this time.
2. Okay to advance to a low residue diet.
3. Continue IV antibiotics.
4. Will need a colonoscopy in 4 to 6 weeks.� Will likely need eventual elective robotic surgery.� Discussed plan with patient at bedside. Follow up with Dr. Sheffield as an outpatient.
Subjective Data
Subjective Data
Date of Service: September 07, 2023
Patient states he is still only a little tender in his LLQ. He denies nausea or vomiting. He is tolerating fulls.
Objective Data
-
Vital Signs
Temp Pulse Resp BP Pulse Ox
98.2 F 60 18 167/81 97
09/07/23 08:12 09/07/23 08:12 09/07/23 08:12 09/07/23 08:12 09/07/23 08:12
Intake & Output
09/06/23 09/07/23 09/08/23
06:59 06:59 06:59
Intake Total 340 / 340 4160 / 4160
Output Total 1150 / 1150 1375 / 1375
Balance -810 / -810 2785 / 2785
Intake:
Oral fluids 240 / 240 1560 / 1560
IV fluids (Total) 2400 / 2400
IV piggybacks 100 / 100 200 / 200
Output:
Urine, Voided 1150 / 1150 1375 / 1375
Lab Results
09/07/23 08:40
09/07/23 08:40
Physical Exam
-
General: No Acute Distress and AOx3
Abdomen: Non Distended and Tender (mild LLQ)
[2023-09-07 15:36] LABS: Hepatitis B Surface Antigen Negative (Negative)
[2023-09-07 15:53] LABS: Hepatitis B Core Ab, Total Negative (Negative); Hepatitis B Surface Antibody Negative; Hepatitis C Antibody Negative (Negative)
[2023-09-07 15:55] LABS: Hepatitis A IgM Antibody Negative (Negative)
[2023-09-07 16:40] LABS: Hepatitis B Core Ab, IgM Negative (Negative)
[2023-09-07 16:41] VITALS: BP 149/72
[2023-09-07] MEDS: PLAVIX 75 MG PO (17:09)
[2023-09-07 17:18] LABS: Hepatitis A Antibody, Total Negative (Negative)
[2023-09-07] MEDS: AMBIEN 5 MG PO (21:00)
[2023-09-07] MEDS: LIORESAL 5 MG PO (21:03)
[2023-09-07] MEDS: FLOMAX 0.400000000000000022 MG PO (21:03)
[2023-09-07] MEDS: ZOFRAN 4 MG IV (21:06)
[2023-09-07] MEDS: FLUSH (NSS) 1 FLUSH IV (21:06)
[2023-09-07 23:31] VITALS: BP 173/79
[2023-09-08] MEDS: ZOSYN 50 IV ×2 (03:42→08:44)
[2023-09-08] MEDS: FLUSH (NSS) 2 FLUSH IV (03:43)
[2023-09-08 06:51] LABS: ALT (SGPT) 110 U/L (0-50); AST (SGOT) 47 U/L (17-59); Albumin 3.3 g/dl (3.5-5.0); Alkaline Phosphatase 183 U/L (38-126); Blood Urea Nitrogen 11 mg/dl (9-20); Calcium 8.3 mg/dl (8.4-10.2); Carbon Dioxide 26 mmol/L (22-30); Chloride 108 mmol/L (98-107); Estimated Creatinine Clearance 51 ml/min; Glucose 113 mg/dl (70-99); Potassium 3.7 mmol/L (3.5-5.1); Sodium 138 mmol/L (135-145); Total Bilirubin 0.9 mg/dl (0.2-1.3); eGFR 51.77
[2023-09-08] MEDS: ProAmatine 10 MG PO ×2 (08:41→13:25)
[2023-09-08] MEDS: PROTONIX 40 MG PO (08:43)
[2023-09-08] MEDS: THERAGRAN 1 TABLET PO (08:44)
[2023-09-08] MEDS: ELIQUIS 5 MG PO (08:44)
[2023-09-08] MEDS: FLORINEF 0.100000000000000006 MG PO (08:45)
[2023-09-08 08:55] VITALS: BP 154/83
--- NOTE | 2023-09-08 11:27 | W.PN.CRS1 ---
Addendum entered and electronically signed by Larry Garcia MD 09/08/23 11:55:
I saw and examined the patient.
The [employer] Specialist's note was reviewed and I agree with the note.
Comment: Doing well with non-op mgmt. Mild ttp to LLQ, zero ttp to RUQ. Doubt any issue with gallbladder is contributing to his presentation at this time. OK for DC from surgical standpoint with PO abx.
Original Note:
Today's Communication / Plan
-
Dispo planning
Assessment/Plan
-
Assessment: 78-year-old male with a significant past medical history of CABG, right nephrectomy, and recent iliac aneurysm repair and multiple attacks of diverticulitis since January, now with sigmoid diverticulitis. Symptoms improved with mild
residual LLQ.
LFT's continue to trend down, WBC returned to normal on 09/07/23
MRCP reviewed with cholelithiasis noted without cholecystitis. No RUQ discomfort on exam.
Tolerating diet
Answered all questions and had lengthy discussion with patient and his (via telephone) regarding his diagnosis, imaging and planned follow up.
Plan:
--There is no indication for urgent surgery at this time
--Continue low residue diet upon d/c
--Continue abx with conversion to PO upon discharge
--Will need a colonoscopy in 4 to 6 weeks.� Will likely need eventual elective robotic surgery.�Revisited plan with patient at bedside. Follow up with Dr. Sheffield as an outpatient.
--Clear for discharge from surgical standpoint with oral abx and outpatient follow up
Subjective Data
Subjective Data
Date of Service: September 08, 2023
Patient seen and examined at bedside with Dr. Garcia.
Episode of nausea last night with dinner but notes he had a very large meal. No nausea with large breakfast this am. Tenderness to LLQ but no abdominal pain otherwise.
Objective Data
-
Vital Signs
Temp Pulse Resp BP Pulse Ox
97.7 F 60 18 154/83 96
09/08/23 08:55 09/08/23 08:55 09/08/23 08:55 09/08/23 08:55 09/08/23 08:55
Intake & Output
09/07/23 09/08/23 09/09/23
06:59 06:59 06:59
Intake Total 4260 / 4260 1900 / 1900
Output Total 1375 / 1375 600 / 600
Balance 2885 / 2885 1300 / 1300
Intake:
Oral fluids 1560 / 1560 1700 / 1700
IV fluids (Total) 2400 / 2400
IV piggybacks 300 / 300 200 / 200
Output:
Urine, Voided 1375 / 1375 600 / 600
Lab Results
09/07/23 08:40
09/08/23 05:39
Physical Exam
-
General: No Acute Distress and AOx3
Abdomen: Non Distended, Tender (mild LLQ) and Other (RUQ NON-tender)
Data Reviewed
-
MRI: Image Reviewed and Report Reviewed
--- NOTE | 2023-09-08 12:29 | W.PN.HOSP.TC ---
Today's Communication/Plan
-
DC
Assessment / Plan
Assessment / Plan
Mr. 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
Acute nausea vomiting which was episodic and subsided now. He is without any abdominal pain. CT of the abdomen but done without any oral contrast raises suspicion for uncomplicated sigmoid diverticulitis. He just finished course of antibiotics
for presumed diverticulitis as an outpatient. He is tender in the sigmoid area to me today. He has no leukocytosis. Unclear if it is diverticulitis or bowel wall thickening without acute inflammation. CRS input noted - recommend abx regimen and
follow up [place] in 5-6 weeks
Other thing to keep in mind is his abnormal LFTs and preceeding antibiotic use.
Abnormal LFTs with abdo pain. CT with IV contrast -There is no focal intrinsic abnormality of the gallbladder, liver, spleen, pancreas, adrenal glands or left kidney except for a small simple parapelvic left renal cyst.�US shows GB sludge with
cholelithiasis but no US signs to suggest cholecystitis. No biliary ductal dilatation. No abdominal pain or tenderness currently. Unclear etiology. Patient was exposed to antibiotics preceding this. Appt GI input - MRI/MRCP shows There is a
small amount of edema adjacent to the anterior margin of the gallbladder, although the wall itself does not appear to be significantly thickened. There is also a small amount of ascites in the left upper quadrant, mainly adjacent to the inferior and
lateral aspect of the spleen
No evidence for biliary ductal dilation. No evidence for bile duct calculus.
No RUQ tenderness -doubt cholecystitis
Improving LFTs
? LFT elevation sec to abx -follow next week
Tolerating LR diet
Orthostatic hypotension
-SUPERVISOR PREP midodrine
-SUPERVISOR PREP fludrocortisone
Parkinson's disease
-patient states no longer on Sinemet given hx orthostatic hypotesnion
Atrial fibrillation paroxysmal.� Continue Eliquis.
Hx right common iliac artery aneurysm with stent 07/21
CAD/CABG
-SUPERVISOR PREP Plavix
Hyperlipidemia
History of bladder cancer/BPH
-SUPERVISOR PREP Flomax
Full code
Medically stable for DC
Pt would like to have tx for nause meds as bridge to doctors/ER visit incase if he becomes symptomatic but he knows to come in to hospital for eval when symptoms recur.
Anticipated Discharge: Today
Subjective/Interval History
-
Date of Service: September 08, 2023
Denies any abdominal pain nausea vomiting.
Tolerating diet
Objective Data
-
Labs:
Laboratory Results
09/08/23
05:39
Sodium 138
Potassium 3.7
Chloride 108 H
Carbon Dioxide 26
BUN 11
Creatinine 1.4 H
Glucose 113 H
Calcium 8.3 L
Total Bilirubin 0.9
AST 47
ALT 110 H
Alkaline Phosphatase 183 H
Vital Signs:
Vital Signs
Temp Pulse Resp BP Pulse Ox
97.7 F 60 18 154/83 96
09/08/23 08:55 09/08/23 08:55 09/08/23 08:55 09/08/23 08:55 09/08/23 08:55
I&O
09/07/23 09/08/23 09/09/23
06:59 06:59 06:59
Intake Total 4260 / 4260 1900 / 1900
Output Total 1375 / 1375 600 / 600
Balance 2885 / 2885 1300 / 1300
Review of Systems
-
Constitutional: Denies Fever
Respiratory: Denies Trouble Breathing
Cardiac: Denies Chest Pain
Neuro: Denies Dizzy
Physical Exam
-
General: No Apparent Distress
HEENT: Moist Mucous Membranes
Respiratory: Clear to Auscultation
Cardiac: Regular Rhythm and S1/S2
GI: Soft, Nondistended, Normal Bowel Sounds and Tender (Discomfort in sigmoid area on deep palpation)
Neuro: AO x 3
Data Reviewed
-
Labs: Labs Reviewed by me
--- NOTE | 2023-09-08 12:38 | W.DS.TRANS ---
DC Summary - [employer] Supervisor
-
Discharge Instructions:
Sleep Apnea Risk Low
Discharge Diagnosis/Procedures Left sigmoid diverticulitis; abnormal LFTs ;
cholelithiasis with gallbladder sludge
Diet Low Residue
Activity As tolerated
Driving Restrictions As prior to admission
Bathing Restrictions None
Blood Work CMP blood work in a week-arrange through PCP
Instructions:
Stand-Alone Forms:
Changes to Home Medications: Yes
Discharge Medications:
DC Medications w/original date entered in [employer]
pantoprazole 40 mg tablet,delayed release 40 mg PO DAILY #30 tabs 08/15/13
ascorbic acid (vitamin C) 500 mg tablet (Vitamin C) 500 mg PO DAILY Supplement 12/17/18
acetaminophen 500 mg tablet (Tylenol Extra Strength) 1,000 mg PO Q6H PRN mild pain 05/28/23
apixaban 5 mg tablet (Eliquis) 5 mg PO BID - CAD status post CABG/stent 05/28/23
baclofen 5 mg tablet 5 mg PO HS Pain 05/28/23
clopidogrel 75 mg tablet 75 mg PO QPM - CAD status post CABG/stent 05/28/23
hydrocortisone acetate 25 mg rectal suppository 25 mg [place] DAILY PRN rectal pain 05/28/23
magnesium hydroxide 400 mg/5 mL oral suspension (Milk of Magnesia) 30 ml PO HS PRN Constipation 05/28/23
sennosides 8.6 mg tablet (senna) 8.6 mg PO HS PRN constipation 05/28/23
therapeutic multivitamin 1 tab PO DAILY Supplement 05/28/23
midodrine 10 mg tablet 10 mg PO TID #30 tabs 06/01/23
fludrocortisone 0.1 mg tablet 0.1 mg PO DAILY Adrenal insufficiency 06/15/23
polyethylene glycol 3350 17 gram oral powder packet (Miralax) 17 g PO DAILY PRN constipation 06/15/23
zolpidem 10 mg tablet 10 mg PO HS Sleep 06/15/23
tamsulosin 0.4 mg capsule (Flomax) 0.4 mg PO HS Urinary Issue 07/10/23
acetaminophen 300 mg-codeine 30 mg tablet 1 tab PO BID PRN back pain 09/05/23
amoxicillin 875 mg-potassium clavulanate 125 mg tablet 1 tab PO BID #14 tabs 09/08/23
ondansetron HCl 4 mg tablet 4 mg PO Q8H PRN nausea and vomiting 3 days #10 tabs 09/08/23
Home Medication Changes
New Medication-Augmentin, Zofran
Pending Results: No
--- NOTE | 2023-09-08 13:12 | W.PN.GI.CBS2 ---
Today's Communication / Plan
-
Recommendations:
-Elevated LFTs, transaminases and bilirubin, now trending down
Ultrasound with gallbladder sludge/stones, no right upper quadrant tenderness
No previous elevation in LFTs.
MRI/MRCP showing gallstones, seen by surgery as well, no need for lap abimael
-History of recurrent diverticulitis
Currently no abdominal pain
Follow-up colonoscopy in 5 to 6 weeks as outpatient-will arrange for follow-up in the office
Has follow-up with colorectal surgery as well
-Chronic constipation with history of Parkinson's
Takes Senokot, MiraLAX and magnesium citrate at home
Monitor bowel movements to prevent any constipation during the hospital visit
Patient reports that the regimen that he uses at home is working and will continue that
Assessment / Plan
-
The pt is 78yo presents with hx multiple medical issues including Parkinson's, bladder CA with TURPBT, nephrectomy, CAD/AR with prior cardiac stents on Plavix, PAF on Eliquis, CABG, AVR, asthma, TIA, GI bleed with hx endovascular repair of right
common iliac artery aneurysm in June. He also related multiple bouts of diverticulitis since last summer. Pt will start with abdominal fullness then nausea/vomiting and CT on admission with noted diverticulitis. He has very minimal abdominal
pain and admits to chronic constipation but some loose stool or regular stools with diverticulitis symptoms. He was last treated in July with Cipro and Flagyl with intolerance then Augmentin. He now presents again with recurrent symptoms with
vomiting. He has been seen by colorectal surgery and recommended colonoscopy then consider resection. He was placed on IV Zosyn. He is however noted with new LFT elevation of bili 2.1, AST 157, ALT 135, alk phos 174 and asked to eval. He is also
noted with pancytopenia, , with MCV up to 109. Pt also admits to chronic constipation and recent wt loss with diet change - 50 lbs. last colonoscopy 07/2013 with severe diverticulosis, transverse and ascites with impacted diverticulum and evidence
of prior bleeding from diverticular opening, and adenomatous polyps. ? EGD years ago.
09/06/23 US abdomen: IMPRESSION: 'Cholelithiasis. There is also a small to moderate amount of mobile sludge within the gallbladder lumen. No evidence for gallbladder wall thickening or pericholecystic edema. No evidence for biliary ductal dilation.
Pancreas is unable to be adequately visualized. No gross abnormality in the peripancreatic region. Aortic endovascular stent graft is present. Status post right nephrectomy.'
Problem list:
-recurrent episode of nausea/vomiting with diverticulitis noted on CT and minimal abdominal pain
-new increased LFT's, US showing gallbladder sludge/cholelithiasis with no liver etiology
-chronic thrombocytopenia, stable
-macrocytic anemia
-recent wt loss with change in diet
-ETOH use - current 2 drinks per week last year
-CAD/CABG/multiple stents on chronic Plavix
-afib on Eliquis
-chronic constipation 2/2 Parkinson's
-recent endovascular repair of right common iliac artery aneurysm
other medical problems:
-Parkinson's disease
-bladder CA with TURBT
-orthostasis on chronic Midodrine
-nephrectomy
-GERD
-AVR
-asthma
-TIA
-GI bleed distant hx unclear source
MRI/MRCP-IMPRESSION: Cholelithiasis. There is a small amount of edema adjacent to the anterior margin of the gallbladder, although the wall itself does not appear to be significantly thickened. There is also a small amount of ascites in the left
upper quadrant, mainly adjacent to the inferior and lateral aspect of the spleen.Please correlate with any clinical symptoms that would suggest acute cholecystitis.No evidence for biliary ductal dilation. No evidence for bile duct calculus.Status
post right nephrectomy. No abnormality of the left kidney.
Recommendations:
-Elevated LFTs, transaminases and bilirubin, now trending down
Ultrasound with gallbladder sludge/stones, no right upper quadrant tenderness
No previous elevation in LFTs.
MRI/MRCP showing gallstones, seen by surgery as well, no need for lap abimael
-History of recurrent diverticulitis
Currently no abdominal pain
Follow-up colonoscopy in 5 to 6 weeks as outpatient-will arrange for follow-up in the office
Has follow-up with colorectal surgery as well
-Chronic constipation with history of Parkinson's
Takes Senokot, MiraLAX and magnesium citrate at home
Monitor bowel movements to prevent any constipation during the hospital visit
Patient reports that the regimen that he uses at home is working and will continue that
Subjective
Subjective
Date of Service: September 08, 2023
No events overnight and no current symptoms
Had not had a bowel movement yet
Objective
Data Reviewed
Laboratory Data:
Laboratory Results
09/07/23 08:40
09/08/23 05:39
Laboratory Results
Magnesium 2.2 mg/dl (1.6-2.3) 09/06/23 06:07
Total Bilirubin 0.9 mg/dl (0.2-1.3) 09/08/23 05:39
AST 47 U/L (17-59) 09/08/23 05:39
ALT 110 U/L (0-50) H 09/08/23 05:39
Alkaline Phosphatase 183 U/L (38-126) H 09/08/23 05:39
Vital Signs and I&O:
Vital Signs
Temp Pulse Resp BP Pulse Ox
97.7 F 60 18 154/83 96
09/08/23 08:55 09/08/23 08:55 09/08/23 08:55 09/08/23 08:55 09/08/23 08:55
I&O
09/07/23 09/08/23 09/09/23
06:59 06:59 06:59
Intake Total 4260 / 4260 1900 / 1900
Output Total 1375 / 1375 600 / 600
Balance 2885 / 2885 1300 / 1300
Physical Exam
Physical Exam
GI: Soft, Non Distended and Normal Bowel Sounds
--- NOTE | 2023-09-08 15:01 | PTCARENOTE ---
Pt DC'd to home. Pt given DC instructions and verbalized understanding.
[2023-09-10 01:16] LABS: Endomysial IgA Antibody Titer <1:10 (<1:10)
[2023-09-10 01:44] LABS: IgA 280 mg/dl (70-400)
[2023-09-11 13:41] LABS: tTG IgA Antibody 7.5 EU/ml (0-19); tTG IgG Antibody 13.5 EU/ml (0-19)
== END 2023-09-08 19:16 | disposition home or self-care (01) | DRG 392 ==
LOC: 4 WEST ACU 22:09
PROVIDERS: Nurse Practitioner Adult Health; Physician Assistant; ADMITTING PHYSICIAN Student in an Organized Health Care Education/Training Program; ATTENDING PHYSICIAN Internal Medicine; CONSULT PHYSICIAN Internal Medicine Gastroenterology; EMERGENCY PHYSICIAN Emergency Medicine; FAMILY PHYSICIAN Internal Medicine; OTHER PHYSICIAN Surgery
DX: K57.32 Diverticulitis of large intestine without perforation or abscess without bleeding (principal); E78.00 Pure hypercholesterolemia, unspecified; I48.0 Paroxysmal atrial fibrillation; I25.10 Atherosclerotic heart disease of native coronary artery without angina pectoris; G20.A1 Parkinson's disease without dyskinesia, without mention of fluctuations; I10 Essential (primary) hypertension; K80.80 Other cholelithiasis without obstruction; J45.909 Unspecified asthma, uncomplicated; K59.09 Other constipation; I95.1 Orthostatic hypotension; D53.9 Nutritional anemia, unspecified; F10.90 Alcohol use, unspecified, uncomplicated; N40.0 Benign prostatic hyperplasia without lower urinary tract symptoms; K21.9 Gastro-esophageal reflux disease without esophagitis; I25.2 Old myocardial infarction; Z85.51 Personal history of malignant neoplasm of bladder; Z87.891 Personal history of nicotine dependence; Z79.52 Long term (current) use of systemic steroids; Z79.01 Long term (current) use of anticoagulants; Z79.02 Long term (current) use of antithrombotics/antiplatelets; Z95.1 Presence of aortocoronary bypass graft; Z88.8 Allergy status to other drugs, medicaments and biological substances; Z90.5 Acquired absence of kidney; Z90.79 Acquired absence of other genital organ(s); Z95.5 Presence of coronary angioplasty implant and graft; Z86.79 Personal history of other diseases of the circulatory system; Z86.73 Personal history of transient ischemic attack (TIA), and cerebral infarction without residual deficits
CPT/HCPCS: 36415; 74022; 74177; 74183; 76700; 80048; 80053; 81003; 82607; 82728; 82746; 82784; 83516; 83540; 83550; 83605; 83735; 85025; 85027; 86231; 86704; 86705; 86706; 86708; 86709; 86803; 87340; 96361; 96374; 99284; A9575; Q9967

== ENCOUNTER → 2023-09-25 13:14 | Outpatient (REF) | payer MEDICARE, SELFPAY | LOC: CLAB 13:14 | PROVIDERS: ATTENDING PHYSICIAN Specialist | DX: C67.9 Malignant neoplasm of bladder, unspecified (principal) | CPT/HCPCS: 88112 ==

== ENCOUNTER → 2023-10-29 06:34 | Day surgery (SDC) | payer MEDICARE, SELFPAY | LOC: GI 06:34 | PROVIDERS: ATTENDING PHYSICIAN Surgery | DX: Z12.11 Encounter for screening for malignant neoplasm of colon (principal); Z86.010 Personal history of colon polyps; K57.30 Diverticulosis of large intestine without perforation or abscess without bleeding; D12.0 Benign neoplasm of cecum | CPT/HCPCS: 45385; 45380; 88305 ==

== ENCOUNTER → 2023-12-21 09:21 | Outpatient (REF) | payer MEDICARE, SELFPAY ==
[2023-12-21 11:52] LABS: % Basophils 0.8 % (0-2); % Eosinophils 1.4 % (0-6); % Immature Granulocytes 0.4 % (0-0.5); % Monocytes 9.3 % (1.7-9.3); % Neutrophils 57.1 % (42.2-75.2); Absolute Eosinophils 0.1 10^3/uL (0-0.7); Absolute Lymphocytes 1.5 10^3/uL (1.2-3.4); Absolute Monocytes 0.5 10^3/uL (0.1-0.6); Absolute Neutrophils 2.8 10^3/uL (1.4-6.5); Hematocrit 34.2 % (39.0-52.0); Hemoglobin 12.1 g/dL (13.0-18.0); Mean Corp Hgb Conc. 35.4 g/dL (33.0-37.0); Mean Corpuscular Hgb 37.3 pg (27.0-31.0); Mean Corpuscular Volume 105.6 fL (80.0-94.0); Mean Platelet Volume 10.6 fL (7.4-10.4); Nucleated Red Blood Cells % 0 % (-); Platelet Count 122 10^3/uL (130-400); Red Blood Cell Count 3.24 10^6/uL (4.70-6.10); Red Cell Dist. Width 15.3 % (11.5-14.5); White Blood Cell Count 4.8 10^3/uL (4.8-10.8)
[2023-12-21 12:20] LABS: ALT (SGPT) 13 U/L (0-50); AST (SGOT) 19 U/L (17-59); Albumin 4.2 g/dl (3.5-5.0); Alkaline Phosphatase 68 U/L (38-126); Direct Bilirubin 0.3 mg/dl (0.0-0.4); HDL Cholesterol 34 mg/dl; LDL Cholesterol, Calculated 113 mg/dl; Total Bilirubin 1.1 mg/dl (0.2-1.3); Total Cholesterol 175 mg/dl (50-199); Triglyceride 144 mg/dl (10-149); Very Low Density Lipoprotein 28 mg/dl (0-30)
== END ==
LOC: HWLAB 09:21
PROVIDERS: ATTENDING PHYSICIAN Internal Medicine; REFERRING PHYSICIAN Internal Medicine Gastroenterology
DX: E78.00 Pure hypercholesterolemia, unspecified (principal); R79.89 Other specified abnormal findings of blood chemistry; K82.8 Other specified diseases of gallbladder; D69.6 Thrombocytopenia, unspecified; D75.89 Other specified diseases of blood and blood-forming organs
CPT/HCPCS: 36415; 80061; 80076; 85025

== ENCOUNTER → 2024-02-19 09:55 | Outpatient (REF) | payer MEDICARE, SELFPAY | LOC: RAD 09:55 | PROVIDERS: ATTENDING PHYSICIAN Surgery Vascular Surgery; FAMILY PHYSICIAN Internal Medicine | DX: I72.3 Aneurysm of iliac artery (principal) | CPT/HCPCS: 93922; 93925; 93978 ==

== ENCOUNTER → 2024-05-20 13:39 | Outpatient (REF) | payer MEDICARE, SELFPAY | LOC: CLAB 13:39 | PROVIDERS: ATTENDING PHYSICIAN Specialist | DX: C67.9 Malignant neoplasm of bladder, unspecified (principal) | CPT/HCPCS: 88112 ==

== ENCOUNTER → 2024-06-10 09:37 | Outpatient (REF) | payer MEDICARE, SELFPAY ==
[2024-06-10 12:15] LABS: % Eosinophils 1.2 % (0-6); % Immature Granulocytes 0.8 % (0-0.5); % Lymphocytes 24.3 % (20.5-51.1); % Monocytes 8.3 % (1.7-9.3); % Neutrophils 64.4 % (42.2-75.2); Absolute Basophils 0.1 10^3/uL (0-0.2); Absolute Eosinophils 0.1 10^3/uL (0-0.7); Absolute Immature Granulocytes 0.1 10^3/uL (0-0.05); Absolute Lymphocytes 1.4 10^3/uL (1.2-3.4); Absolute Monocytes 0.5 10^3/uL (0.1-0.6); Absolute Neutrophils 3.8 10^3/uL (1.4-6.5); Hematocrit 35.4 % (39.0-52.0); Hemoglobin 12.3 g/dL (13.0-18.0); Mean Corp Hgb Conc. 34.7 g/dL (33.0-37.0); Mean Corpuscular Hgb 37.4 pg (27.0-31.0); Mean Corpuscular Volume 107.6 fL (80.0-94.0); Mean Platelet Volume 11.2 fL (7.4-10.4); Nucleated Red Blood Cells % 0 % (-); Platelet Count 125 10^3/uL (130-400); Red Blood Cell Count 3.29 10^6/uL (4.70-6.10); Red Cell Dist. Width 15.1 % (11.5-14.5); White Blood Cell Count 5.9 10^3/uL (4.8-10.8)
[2024-06-10 12:59] LABS: Albumin 4.3 g/dl (3.5-5.0); Chloride 106 mmol/L (98-107); Potassium 4.6 mmol/L (3.5-5.1); Sodium 144 mmol/L (135-145); Total Cholesterol 158 mg/dl (50-199); eGFR 56.58
[2024-06-10 13:00] LABS: PSA, Total - Screen 0.46 ng/ml (0.0-4.0)
[2024-06-10 13:06] LABS: Glycohemoglobin (HgbA1c) 5.3 % (4.0-5.6)
[2024-06-10 13:09] LABS: ALT (SGPT) 14 U/L (0-50); AST (SGOT) 20 U/L (17-59); Alkaline Phosphatase 61 U/L (38-126); Blood Urea Nitrogen 27 mg/dl (9-20); Calcium 9.4 mg/dl (8.4-10.2); Carbon Dioxide 26 mmol/L (22-30); Glucose 104 mg/dl (70-99); HDL Cholesterol 31 mg/dl; LDL Cholesterol, Calculated 104 mg/dl; Total Bilirubin 0.8 mg/dl (0.2-1.3); Total Protein 6.9 g/dl (6.3-8.2); Triglyceride 118 mg/dl (10-149); Very Low Density Lipoprotein 23 mg/dl (0-30)
[2024-06-12 13:58] LABS: Folate > 20.0 ng/ml (2.76-20); Vitamin B12 540 pg/ml (239-931)
== END ==
LOC: HWLAB 09:37
PROVIDERS: ATTENDING PHYSICIAN Internal Medicine
DX: R73.9 Hyperglycemia, unspecified (principal); E78.00 Pure hypercholesterolemia, unspecified; D53.9 Nutritional anemia, unspecified; Z12.5 Encounter for screening for malignant neoplasm of prostate; I72.3 Aneurysm of iliac artery
CPT/HCPCS: 36415; 80053; 80061; 82607; 82746; 83036; 85025; G0103

== ENCOUNTER → 2024-08-01 10:32 | Outpatient (REF) | payer MEDICARE, SELFPAY ==
[2024-08-01 16:42] LABS: TSH 2.08 uIU/ml (0.47-4.68)
[2024-08-03 16:21] LABS: Platelet Antibody, Direct IgG Negative (Negative); Platelet Antibody, Direct IgM Negative (Negative)
[2024-08-04 09:29] LABS: Cardiolipin IgA Antibody <10 APL (<=11); Cardiolipin IgM Antibody <10 MPL (<=12); Cardiolipin Igg Antibody <10 GPL (<=14)
== END ==
LOC: HWLAB 10:32
PROVIDERS: ATTENDING PHYSICIAN Internal Medicine Hematology & Oncology; FAMILY PHYSICIAN Internal Medicine
DX: D69.59 Other secondary thrombocytopenia (principal); I10 Essential (primary) hypertension
CPT/HCPCS: 36415; 84443; 85610; 85613; 85730; 86023; 86147

== ENCOUNTER → 2024-09-24 09:10 | Outpatient (REF) | payer MEDICARE, SELFPAY ==
[2024-09-24 09:25] VITALS: BP 131/60; BP_SYST 60
[2024-09-24 09:42] LABS: % Basophils 0.5 % (0-2); % Eosinophils 1.1 % (0-6); % Immature Granulocytes 0.6 % (0-0.5); % Lymphocytes 25.2 % (20.5-51.1); % Monocytes 8.9 % (1.7-9.3); % Neutrophils 63.7 % (42.2-75.2); Absolute Eosinophils 0.1 10^3/uL (0-0.7); Absolute Lymphocytes 1.6 10^3/uL (1.2-3.4); Absolute Monocytes 0.6 10^3/uL (0.1-0.6); Absolute Neutrophils 3.9 10^3/uL (1.4-6.5); Hematocrit 35.3 % (39.0-52.0); Hemoglobin 11.9 g/dL (13.0-18.0); Mean Corp Hgb Conc. 33.7 g/dL (33.0-37.0); Mean Corpuscular Hgb 37.7 pg (27.0-31.0); Mean Corpuscular Volume 111.7 fL (80.0-94.0); Mean Platelet Volume 10.6 fL (7.4-10.4); Nucleated Red Blood Cells % 0 % (-); Platelet Count 116 10^3/uL (130-400); Red Blood Cell Count 3.16 10^6/uL (4.70-6.10); Red Cell Dist. Width 15.3 % (11.5-14.5); White Blood Cell Count 6.2 10^3/uL (4.8-10.8)
[2024-09-24] MEDS: ATIVAN 0.5 MG IV (10:04)
[2024-09-24 10:40] VITALS: BP 152/49; BP_SYST 60
[2024-09-24 10:45] VITALS: BP 143/76; BP_SYST 74
[2024-09-24 11:00] VITALS: BP 147/76; BP_SYST 68
[2024-09-24 11:25] VITALS: BP 147/76
== END ==
LOC: RADI 09:10
PROVIDERS: ATTENDING PHYSICIAN Internal Medicine Hematology & Oncology; FAMILY PHYSICIAN Internal Medicine
DX: D69.59 Other secondary thrombocytopenia (principal); D53.9 Nutritional anemia, unspecified
CPT/HCPCS: 88305; 88311; 88312; 36415; 38222; 77012; 85025; 88313

== ENCOUNTER → 2024-10-02 09:48 | Outpatient (REF) | payer MEDICARE, SELFPAY | LOC: RAD 09:48 | PROVIDERS: ATTENDING PHYSICIAN Surgery Vascular Surgery; FAMILY PHYSICIAN Internal Medicine | DX: I72.3 Aneurysm of iliac artery (principal) | CPT/HCPCS: 76770; 93922 ==